=== PATIENT | male | born 1990 | race Hispanic/Latino ===

== ENCOUNTER 2017-05-29 20:44 | Emergency (ER) | payer OTHER ==
[~2017-05-29] VITALS: Ht 175.3 cm; Wt 95.0 kg
[2017-05-29 22:22] LABS: INFLUENZA A NONE DETECTED (NONE DETECT); INFLUENZA B NONE DETECTED (NONE DETECT)
[2017-05-29] MEDS ORDERED: CEPHALEXIN500 MG PO (22:28)
[2017-05-29] MEDS ORDERED: ROBITUSSIN200 MG/10 PO (22:28)
[2017-05-29 22:45] VITALS: BP 136/87
== END 2017-05-29 22:45 | disposition home or self-care (01) | DRG 153 ==
LOC: ED 20:44
PROVIDERS: Emergency Medicine
DX: J02.9 Acute pharyngitis, unspecified (principal); R50.9 Fever, unspecified; R05 Cough; R11.2 Nausea with vomiting, unspecified